=== PATIENT | male | born 1975 | race Two or more races ===

== ENCOUNTER 2017-01-19 10:50 | Emergency (ER) | payer OTHER ==
[~2017-01-19] VITALS: Ht 170.2 cm; Wt 71.3 kg
[~2017-01-19 10:50] MED LIST: COLACE100 MG PO
[2017-01-19] MEDS ORDERED: TRAZODONE HCL50 MG PO (13:25)
[2017-01-19] MEDS ORDERED: DIVALPROEX SOD500 MG PO (13:25)
[2017-01-19 13:41] LABS: HEMATOCRIT 46.8 % (38.0-50.0); MCH 29.4 PG (29.0-34.0); MCHC 33.5 G/DL (30.0-36.0); MCV 87.6 FL (86-99); RBC DIS.WIDTH-CV 11.9 % (11.8-14.6); RBC DIS.WIDTH-SD 37.8 % (39-53); RED BLOOD COUNT 5.34 M/uL (4.00-5.50); WHITE BLOOD COUNT 9.6 K/uL (4.1-10.2)
[2017-01-19 13:43] LABS: METHEMOGLOBIN 1.2 % (0-1.5); MIXED VENOUS O2 SATURATION 66.8 % (65-75)
[2017-01-19 13:50] LABS: CHLORIDE 105 mEq/L (99-109); POTASSIUM 4.2 mEq/L (3.7-5.4); SODIUM 140 mEq/L (136-147)
[2017-01-19 13:52] LABS: GLUCOSE 96 mg/dL (70-99)
[2017-01-19 13:53] LABS: ANION GAP 9 MEQ/L (2-14)
[2017-01-19 13:54] LABS: BASE EXCESS 1.6 mEq/L (-3 to +3); BICARBONATE 24.7 mEq/L (22-26); COMMENTS - BLOOD GASES A+C+; DEVICE BREATHING TX; METHEMOGLOBIN 1.3 % (0-1.5); O2 FLOW 8 L/MIN; PCO2 34 mm Hg (35-45); PO2 168 mm Hg (80-100); SITE LRA; TOTAL RESP RATE 18 resp/min; pH 7.47 (7.35-7.45)
[2017-01-19 13:56] LABS: GFR ESTIMATE (CALCULATED) > 59 mL/min/; UREA NITROGEN (BUN) 13 mg/dL (9-23)
[2017-01-19 14:05] LABS: TROP-I INTERPRETATION NEGATIVE; TROPONIN-I < 0.01 ng/mL (0.0-0.30)
[2017-01-19 14:10] LABS: INFLUENZA A VIRAL ANTIGEN NEGATIVE; INFLUENZA B VIRAL ANTIGEN NEGATIVE
[2017-01-19 14:38] LABS: MEAN PLAT.VOLUME 10.5 uM^3 (9.0-12.4); PLAT.SUFFICIENCY ADEQUATE; PLATELET COUNT 197 K/uL (156-360)
[2017-01-19] MEDS ORDERED: VENTOLIN HFA18 GM IH (15:28)
[2017-01-19 16:00] VITALS: BP 136/81
== END 2017-01-19 16:00 | disposition home or self-care (01) ==
LOC: EME 10:50
PROVIDERS: Physician Assistant
DX: Z04.2 Encounter for examination and observation following work accident (principal); Z77.29 Contact with and (suspected) exposure to other hazardous substances; R06.00 Dyspnea, unspecified; R05 Cough; R11.0 Nausea; R07.9 Chest pain, unspecified; R00.0 Tachycardia, unspecified; Z87.891 Personal history of nicotine dependence
CPT/HCPCS: 36600; 71020; 80048; 82803; 82810; 84484; 85027; 87502; 93005; 94640; 99281; 99283

== ENCOUNTER → 2017-03-17 | Outpatient (CLI) | payer OTHER ==
[~2017-03-17] MED LIST changes: +DIVALPROEX SOD500 MG PO; +TRAZODONE HCL50 MG PO; +VENTOLIN HFA18 GM IH
== END | disposition home or self-care (01) ==
LOC: RES 03-12 13:00
DX: R06.02 Shortness of breath (principal)
CPT/HCPCS: 94070; 94726; 94729